=== PATIENT | male | born 1990 | race Caucasian/White ===

== ENCOUNTER 2016-05-26 06:03 | Emergency (ER) | payer OTHER ==
[2016-05-26] MEDS ORDERED: ONDANSETRON 4 MG/2 ML VIAL IVP STA ×2 (06:12→06:13)
[2016-05-26] MEDS ORDERED: FAMOTIDINE 20 MG/2 ML VIAL IV STA ×2 (06:12→06:13)
[2016-05-26] MEDS ORDERED: SODIUM CHLORIDE 0.9% 1,000 ML IV STA ×2 (06:13→07:14)
--- NOTE | 2016-05-26 06:15 | ED ---
General Adult HPI - General Source: patient (And girlfriend), RN notes reviewed Mode of arrival: ambulatory Limitations: no limitations <Phani Maravilla - Last Filed: 05/26/16 06:14> <Gadiel Salazar - Last Filed: 05/26/16 08:25> - General Chief complaint: Abdominal Pain Stated complaint: NAUSEA,VOMITING,ABD PAIN Time Seen by Provider: 05/26/16 06:09 - History of Present Illness Initial comments: Patient is a pleasant 25-year-old male presenting to emergency Department with nausea vomiting abdominal discomfort. Onset was just the past couple hours. Symptoms woke him from sleep. No known bad food exposure. No fevers. No history of chronic problems. Patient has dry heaved several times with one episode of emesis. Patient has discomfort mostly in the epigastric region. Majority of history is taken from girlfriend. (Phani Maravilla) - Related Data Previous Rx's Medication Instructions Recorded Dicyclomine [Bentyl] 10 mg PO TID #15 capsule 05/26/16 Allergies Allergy/AdvReac Type Severity Reaction Status Date / Time No Known Allergies Allergy Verified 05/26/16 07:37 Review of Systems ROS Other: All systems not noted in ROS Statement are negative. Constitutional: Denies: fever Eyes: Denies: eye pain ENT: Denies: ear pain Respiratory: Denies: cough Cardiovascular: Denies: chest pain Endocrine: Denies: fatigue Gastrointestinal: Reports: abdominal pain, nausea, vomiting. Denies: diarrhea Genitourinary: Denies: dysuria Musculoskeletal: Denies: back pain Skin: Denies: rash Neurological: Denies: weakness <Phani Maravilla - Last Filed: 05/26/16 06:14> ROS Other: All systems not noted in ROS Statement are negative. <Gadiel Salazar - Last Filed: 05/26/16 08:25> ROS Statement: Those systems with pertinent positive or pertinent negative responses have been documented in the HPI. Past Medical History Past Medical History: No Reported History History of Any Multi-Drug Resistant Organisms: None Reported Past Surgical History: No Surgical Hx Reported Past Psychological History: No Psychological Hx Reported Smoking Status: Current every day smoker Past Alcohol Use History: Occasional Past Drug Use History: None Reported <Phani Maravilla - Last Filed: 05/26/16 06:14> General Exam Limitations: no limitations General appearance: alert Head exam: Present: atraumatic, normocephalic Eye exam: Present: normal appearance Neck exam: Present: normal inspection Respiratory exam: Present: normal lung sounds bilaterally Cardiovascular Exam: Present: regular rate, normal rhythm Expanded Peripheral pulses: 2+: Dorsalis Pedis (R), Dorsalis Pedis (L) GI/Abdominal exam: Present: soft, tenderness (Mild diffuse tenderness), normal bowel sounds. Absent: distended, guarding, rebound, rigid, pulsatile mass Extremities exam: Present: normal inspection Neurological exam: Present: alert Psychiatric exam: Present: normal affect, normal mood Skin exam: Absent: rash <Phani Maravilla - Last Filed: 05/26/16 06:14> Medical Decision Making <Phani Maravilla - Last Filed: 05/26/16 06:14> - Lab Data Result diagrams: 05/26/16 06:25 05/26/16 06:25 - Radiology Data Radiology results: report reviewed (I did review the x-ray report is consistent with enteritis.), image reviewed <Gadiel Salazar - Last Filed: 05/26/16 08:25> - Medical Decision Making I did review the patient's labs and x-rays and did discuss the findings with patient and reevaluated on several occasions I did discuss findings also with the patient's mother with the patient's permission. Patient does demonstrate evidence of enteritis secondary likely to a viral infection patient will be discharged he is feeling much improved at this time. We discharged and instructed to increase oral fluids appropriate medication no for work today. ( Gadiel Salazar) - Lab Data Lab Results 05/26/16 05/26/16 05/26/16 Range/Units 06:25 06:25 06:25 WBC 9.0 (3.8-10.6) k/uL RBC 5.65 (4.30-5.90) m/uL Hgb 16.9 (13.0-17.5) gm/dL Hct 49.7 (39.0-53.0) % MCV 88.0 (80.0-100.0) fL MCH 30.0 (25.0-35.0) pg MCHC 34.1 (31.0-37.0) g/dL RDW 13.1 (11.5-15.5) % Plt Count 156 (150-450) k/uL Neutrophils % 76 % Lymphocytes % 15 % Monocytes % 5 % Eosinophils % 2 % Basophils % 1 % Neutrophils # 6.9 (1.3-7.7) k/uL Lymphocytes # 1.3 (1.0-4.8) k/uL Monocytes # 0.4 (0-1.0) k/uL Eosinophils # 0.2 (0-0.7) k/uL Basophils # 0.1 (0-0.2) k/uL PT 10.5 (9.0-12.0) sec INR 1.0 (<1.1) APTT 21.6 L (22.0-30.0) sec Sodium 146 H (137-145) mmol/L Potassium 4.2 (3.5-5.1) mmol/L Chloride 101 (98-107) mmol/L Carbon Dioxide 28 (22-30) mmol/L Anion Gap 17 mmol/L BUN 23 H (9-20) mg/dL Creatinine 1.29 H (0.66-1.25) mg/dL Est GFR (MDRD) Af Amer >60 (>60 ml/min/1.73 sqM) Est GFR (MDRD) Non-Af >60 (>60 ml/min/1.73 sqM) Glucose 101 H (74-99) mg/dL Calcium 10.4 H (8.4-10.2) mg/dL Total Bilirubin 0.6 (0.2-1.3) mg/dL AST 52 (17-59) U/L ALT 52 (21-72) U/L Alkaline Phosphatase 67 (38-126) U/L Total Protein 8.4 H (6.3-8.2) g/dL Albumin 5.4 H (3.5-5.0) g/dL Amylase 120 H (30-110) U/L Lipase 513 H (23-300) U/L Urine Color Urine Appearance (Clear) Urine pH (5.0-8.0) Ur Specific [place] (1.001-1.035) Urine Protein (Negative) Urine Glucose (UA) (Negative) Urine Ketones (Negative) Urine Blood (Negative) Urine Nitrite (Negative) Urine Bilirubin (Negative) Urine Urobilinogen (<2.0) mg/dL Ur Leukocyte Esterase (Negative) Urine RBC (0-5) /hpf Urine WBC (0-5) /hpf Urine Mucus (None) /hpf 05/26/16 Range/Units 07:42 WBC (3.8-10.6) k/uL RBC (4.30-5.90) m/uL Hgb (13.0-17.5) gm/dL Hct (39.0-53.0) % MCV (80.0-100.0) fL MCH (25.0-35.0) pg MCHC (31.0-37.0) g/dL RDW (11.5-15.5) % Plt Count (150-450) k/uL Neutrophils % % Lymphocytes % % Monocytes % % Eosinophils % % Basophils % % Neutrophils # (1.3-7.7) k/uL Lymphocytes # (1.0-4.8) k/uL Monocytes # (0-1.0) k/uL Eosinophils # (0-0.7) k/uL Basophils # (0-0.2) k/uL PT (9.0-12.0) sec INR (<1.1) APTT (22.0-30.0) sec Sodium (137-145) mmol/L Potassium (3.5-5.1) mmol/L Chloride (98-107) mmol/L Carbon Dioxide (22-30) mmol/L Anion Gap mmol/L BUN (9-20) mg/dL Creatinine (0.66-1.25) mg/dL Est GFR (MDRD) Af Amer (>60 ml/min/1.73 sqM) Est GFR (MDRD) Non-Af (>60 ml/min/1.73 sqM) Glucose (74-99) mg/dL Calcium (8.4-10.2) mg/dL Total Bilirubin (0.2-1.3) mg/dL AST (17-59) U/L ALT (21-72) U/L Alkaline Phosphatase (38-126) U/L Total Protein (6.3-8.2) g/dL Albumin (3.5-5.0) g/dL Amylase (30-110) U/L Lipase (23-300) U/L Urine Color Yellow Urine Appearance Clear (Clear) Urine pH 6.5 (5.0-8.0) Ur Specific [place] 1.026 (1.001-1.035) Urine Protein 1+ H (Negative) Urine Glucose (UA) Negative (Negative) Urine Ketones Trace H (Negative) Urine Blood Negative (Negative) Urine Nitrite Negative (Negative) Urine Bilirubin Negative (Negative) Urine Urobilinogen <2.0 (<2.0) mg/dL Ur Leukocyte Esterase Small H (Negative) Urine RBC 1 (0-5) /hpf Urine WBC 5 (0-5) /hpf Urine Mucus Few H (None) /hpf Disposition <Phani Maravilla - Last Filed: 05/26/16 06:14> <Gadiel Salazar - Last Filed: 05/26/16 08:25> Clinical Impression: Gastroenteritis, Dehydration, Abdominal pain Disposition: HOME SELF-CARE Condition: Good Instructions: Abdominal Pain (ED), Gastroenteritis (ED), Dehydration (ED) Prescriptions: Dicyclomine [Bentyl] 10 mg PO TID #15 capsule
[2016-05-26 06:39] LABS: Basophils # (A) 0.1 k/uL (0-0.2); Basophils % (A) 1 %; CH 30.3; CHCM 34.6; Eosinophils # (A) 0.2 k/uL (0-0.7); Eosinophils % (A) 2 %; HCT 49.7 % (39.0-53.0); HDW 2.34; HGB 16.9 gm/dL (13.0-17.5); Luc # (Auto) 0.15; Luc % (Auto) 2; Lymphocytes # (A) 1.3 k/uL (1.0-4.8); Lymphocytes % (A) 15 %; MCHC 34.1 g/dL (31.0-37.0); Mean Platelet Volume 8.3; Monocytes # (A) 0.4 k/uL (0-1.0); Monocytes % (A) 5 %; Neutrophils # (A) 6.9 k/uL (1.3-7.7); Neutrophils % (A) 76 %; RBC 5.65 m/uL (4.30-5.90); RDW 13.1 % (11.5-15.5); WBC (Perox) 8.65
[2016-05-26 06:50] LABS: ALT 52 U/L (21-72); AST 52 U/L (17-59); Alkaline Phosphatase 67 U/L (38-126); Amylase 120 U/L (30-110); Anion Gap 17 mmol/L; Blood Urea Nitrogen 23 mg/dL (9-20); Calcium 10.4 mg/dL (8.4-10.2); Carbon Dioxide 28 mmol/L (22-30); Chloride 101 mmol/L (98-107); Glucose 101 mg/dL (74-99); Non-African American GFR(MDRD) >60 (>60 ml/min/1.73 sqM); Potassium 4.2 mmol/L (3.5-5.1); Sodium 146 mmol/L (137-145); Total Bilirubin 0.6 mg/dL (0.2-1.3); Total Protein 8.4 g/dL (6.3-8.2)
[2016-05-26 06:51] LABS: Prothrombin Time 10.5 sec (9.0-12.0)
--- NOTE | 2016-05-26 07:12 | XR ---
EXAMINATION TYPE: XR KUB DATE OF EXAM: 05/26/2016 6:46 AM CLINICAL DATA: 25-year-old male with abdominal pain, epigastric pain with nausea and vomiting, PHH COMPARISON: None FINDINGS: Lung bases are clear. No evidence for free intraperitoneal air. No dilated small bowel. Air is seen throughout the colon with multiple air-fluid levels. No abnormal bowel dilatation. There is mild stool in the distal colon. No suspicious calcifications seen. IMPRESSION: 1. Air-fluid levels throughout the colon suggesting liquid stool. Correlate for enteritis. 2. No evidence of bowel obstruction or free intraperitoneal air.
[2016-05-26] MEDS ORDERED: KETOROLAC 30 MG/ML 1 ML VIAL IVP STA (07:13)
[2016-05-26 07:16] LABS: Partial Thromboplastin Time 21.6 sec (22.0-30.0)
[2016-05-26 08:15] LABS: Appearance,Urine Clear (Clear); Bilirubin,Urine Negative (Negative); Glucose,Urine (UA) Negative (Negative); Ketones,Urine Trace (Negative); Leukocyte Esterase,Urine Small (Negative); Mucus,Urine Few /hpf; Nitrite,Urine Negative (Negative); PH, Urine 6.5 (5.0-8.0); Particle Count 7793; Protein,Urine 1+ (Negative); RBC,Urine 1 /hpf (0-5); Specific Gravity,Urine 1.026 (1.001-1.035); UA Billing (MACRO vs. MICRO) MICRO; Urobilinogen,Urine <2.0 mg/dL (<2.0); WBC,Urine 5 /hpf (0-5)
[2016-05-26 08:38] VITALS: BP 104/52; PULSE 69; RESP 17; TEMP 97.5
== END 2016-05-26 08:37 | disposition home or self-care (01) ==
LOC: EC 06:03
DX: K52.9 Noninfective gastroenteritis and colitis, unspecified (principal); E86.0 Dehydration; R11.2 Nausea with vomiting, unspecified; F17.200 Nicotine dependence, unspecified, uncomplicated
CPT/HCPCS: 99284; 96374; 96375 ×2; 96361 ×2; 36415; 80053; 82150; 83690; 85025; 85610; 85730; 81001; 74000; J2405; J1885

== ENCOUNTER 2017-07-31 20:23 | Emergency (ER) | payer BC, OTHER ==
[2017-07-31 20:39] VITALS: TEMP 97.4
[2017-07-31] MEDS ORDERED: SODIUM CHLORIDE 0.9% 1,000 ML IV STA (21:23)
[2017-07-31] MEDS ORDERED: KETOROLAC 30 MG/ML 1 ML VIAL IVP STA (21:23)
--- NOTE | 2017-07-31 21:28 | ED ---
Abdominal Pain HPI - General Chief Complaint: Abdominal Pain Stated Complaint: Abdominal Pain Time Seen by Provider: 07/31/17 21:11 Source: patient, RN notes reviewed Mode of arrival: ambulatory Limitations: no limitations - History of Present Illness Initial Comments: This is a 27-year-old male who presents to the emergency department with chief complaint of abdominal pain. Patient is accompanied by his father who contributes to history. Patient states that for the past 6-8 months he has been experiencing intermittent abdominal pain. He states that he has been seen here 3 times and at [facility] 2 times. His last visit to [facility] was 2 days ago where he did have a computed tomography scan performed. Patient reports right upper quadrant abdominal pain that feels like he is being punched in the gut. He states the pain is made worse after eating. He states that over the past 6 months he has lost 15 pounds. He states he is unable to eat. He admits to associated nausea and vomiting. Denies fevers or chills, chest pain shortness breath, constipation or diarrhea. He denies any flank pain. Denies dysuria or hematuria. Father is at bedside and states that he is very concerned. He states that patient is normally very active and well and not something is going on. He states the patient does have a follow-up with gastroenterology in 3 weeks but that patient cannot wait that long. - Related Data Previous Rx's Medication Instructions Recorded Dicyclomine [Bentyl] 10 mg PO TID #15 capsule 05/26/16 Allergies Allergy/AdvReac Type Severity Reaction Status Date / Time No Known Allergies Allergy Verified 07/31/17 20:39 Review of Systems ROS Statement: Those systems with pertinent positive or pertinent negative responses have been documented in the HPI. ROS Other: All systems not noted in ROS Statement are negative. Past Medical History Past Medical History: No Reported History History of Any Multi-Drug Resistant Organisms: None Reported Past Surgical History: No Surgical Hx Reported Past Psychological History: No Psychological Hx Reported Smoking Status: Current every day smoker Past Alcohol Use History: Occasional Past Drug Use History: None Reported General Exam - General Exam Comments Initial Comments: General: Awake and alert, well-developed; in no apparent distress. HEENT: Head atraumatic, normocephalic. Pupils are equal, round and reactive to light. Extraocular movements intact. Oropharynx moist without erythema or exudate. Neck: Supple. Normal ROM. Cardiovascular: Regular rate and rhythm. No murmurs, rubs or gallops. Chest symmetrical. Respiratory: Lungs clear to auscultation bilaterally. No wheezes, rales or rhonchi. Normal respiratory effort with no use of accessory muscles. Abdomen: Soft, non-distended. Mild tenderness on palpation of right upper quadrant. No rigidity, rebound or guarding. Normal bowel sounds in all 4 quadrants. Musculoskeletal: Normal ROM, no tenderness bilateral upper and lower extremities. Ambulating normally. Skin: Percival, warm and dry without rashes or lesions. Neurological: Alert and oriented x3. CN II-XII grossly intact. Speech is fluent and answers are appropriate. No focal neuro deficits. Psychiatric: Normal mood and affect. No overt signs of depression or anxiety noted. Limitations: no limitations Course Vital Signs 07/31/17 20:37 Temperature 97.4 F L Pulse Rate 52 L Respiratory 18 Rate Blood Pressure 103/60 O2 Sat by Pulse 98 Oximetry Medical Decision Making - Medical Decision Making This is a 27-year-old male who presents to the emergency department with chief complaint of abdominal pain. Patient has been having intermittent abdominal pain for the past 6-8 months. He has been evaluated multiple times at this ER and [facility]. He was seen at [facility] 2 days ago with the same issue. Patient states that his symptoms have not worsened but that they have not subsided. He complains of right upper quadrant abdominal pain, nausea and vomiting. CBC, CMP, coags and UA were unremarkable. I was able to obtain the report from the computed tomography scan the patient had performed 2 days ago at [facility]. This revealed a tiny amount of free fluid in the pelvis but no definitive minute other acute abnormality identified. While in the emergency department, patient's vital signs have been stable and he is in no acute distress. Patient will be given contact information for follow-up to GI. Patient is in agreement with [employer] voices understanding. He is in no acute distress at this time. All questions answered. - Lab Data Result diagrams: 07/31/17 21:02 07/31/17 21:02 Lab Results 07/31/17 07/31/17 07/31/17 Range/Units 21:02 21:02 21:02 WBC 8.6 (3.8-10.6) k/uL RBC 5.13 (4.30-5.90) m/uL Hgb 15.6 (13.0-17.5) gm/dL Hct 44.7 (39.0-53.0) % MCV 87.1 (80.0-100.0) fL MCH 30.3 (25.0-35.0) pg MCHC 34.8 (31.0-37.0) g/dL RDW 12.8 (11.5-15.5) % Plt Count 148 L (150-450) k/uL Neutrophils % 69 % Lymphocytes % 23 % Monocytes % 5 % Eosinophils % 1 % Basophils % 1 % Neutrophils # 5.9 (1.3-7.7) k/uL Lymphocytes # 1.9 (1.0-4.8) k/uL Monocytes # 0.4 (0-1.0) k/uL Eosinophils # 0.1 (0-0.7) k/uL Basophils # 0.0 (0-0.2) k/uL PT 10.5 (9.0-12.0) sec INR 1.1 (<1.2) APTT 24.6 (22.0-30.0) sec Sodium 142 (137-145) mmol/L Potassium 3.9 (3.5-5.1) mmol/L Chloride 99 (98-107) mmol/L Carbon Dioxide 29 (22-30) mmol/L Anion Gap 14 mmol/L BUN 15 (9-20) mg/dL Creatinine 1.00 (0.66-1.25) mg/dL Est GFR (CKD-EPI)AfAm >90 (>60 ml/min/1.73 sqM) Est GFR (CKD-EPI)NonAf >90 (>60 ml/min/1.73 sqM) Glucose 102 H (74-99) mg/dL Calcium 9.6 (8.4-10.2) mg/dL Total Bilirubin 0.2 (0.2-1.3) mg/dL AST 28 (17-59) U/L ALT 44 (21-72) U/L Alkaline Phosphatase 51 (38-126) U/L Total Protein 6.5 (6.3-8.2) g/dL Albumin 4.3 (3.5-5.0) g/dL Amylase 53 (30-110) U/L Lipase 19 L (23-300) U/L Urine Color Urine Appearance (Clear) Urine pH (5.0-8.0) Ur Specific [place] (1.001-1.035) Urine Protein (Negative) Urine Glucose (UA) (Negative) Urine Ketones (Negative) Urine Blood (Negative) Urine Nitrite (Negative) Urine Bilirubin (Negative) Urine Urobilinogen (<2.0) mg/dL Ur Leukocyte Esterase (Negative) Urine RBC (0-5) /hpf Ur Squamous Epith Cells (0-4) /hpf Amorphous Sediment (None) /hpf Urine Mucus (None) /hpf 07/31/17 Range/Units 21:02 WBC (3.8-10.6) k/uL RBC (4.30-5.90) m/uL Hgb (13.0-17.5) gm/dL Hct (39.0-53.0) % MCV (80.0-100.0) fL MCH (25.0-35.0) pg MCHC (31.0-37.0) g/dL RDW (11.5-15.5) % Plt Count (150-450) k/uL Neutrophils % % Lymphocytes % % Monocytes % % Eosinophils % % Basophils % % Neutrophils # (1.3-7.7) k/uL Lymphocytes # (1.0-4.8) k/uL Monocytes # (0-1.0) k/uL Eosinophils # (0-0.7) k/uL Basophils # (0-0.2) k/uL PT (9.0-12.0) sec INR (<1.2) APTT (22.0-30.0) sec Sodium (137-145) mmol/L Potassium (3.5-5.1) mmol/L Chloride (98-107) mmol/L Carbon Dioxide (22-30) mmol/L Anion Gap mmol/L BUN (9-20) mg/dL Creatinine (0.66-1.25) mg/dL Est GFR (CKD-EPI)AfAm (>60 ml/min/1.73 sqM) Est GFR (CKD-EPI)NonAf (>60 ml/min/1.73 sqM) Glucose (74-99) mg/dL Calcium (8.4-10.2) mg/dL Total Bilirubin (0.2-1.3) mg/dL AST (17-59) U/L ALT (21-72) U/L Alkaline Phosphatase (38-126) U/L Total Protein (6.3-8.2) g/dL Albumin (3.5-5.0) g/dL Amylase (30-110) U/L Lipase (23-300) U/L Urine Color Yellow Urine Appearance Cloudy (Clear) Urine pH 7.0 (5.0-8.0) Ur Specific [place] 1.019 (1.001-1.035) Urine Protein Trace H (Negative) Urine Glucose (UA) Negative (Negative) Urine Ketones Negative (Negative) Urine Blood Negative (Negative) Urine Nitrite Negative (Negative) Urine Bilirubin Negative (Negative) Urine Urobilinogen <2.0 (<2.0) mg/dL Ur Leukocyte Esterase Negative (Negative) Urine RBC 5 (0-5) /hpf Ur Squamous Epith Cells <1 (0-4) /hpf Amorphous Sediment Occasional H (None) /hpf Urine Mucus Rare H (None) /hpf Disposition Clinical Impression: Abdominal pain, Nausea and vomiting Disposition: HOME SELF-CARE Condition: Good Instructions: Abdominal Pain (ED) Additional Instructions: Please follow-up with Dr. Petty, gastroenterology within 1-2 days. Please follow up with primary care provider within 1-2 days. Return to emergency department if symptoms should worsen or any concerns arise. Is patient prescribed a controlled substance at d/c from ED?: No Referrals: Jaden Murdock MD [Primary Care Provider] - 1-2 days Frannie Petty MD [STAFF PHYSICIAN] - 1-2 days Time of Disposition: 22:23
[2017-07-31 21:58] LABS: Basophils % (A) 1 %; Eosinophils # (A) 0.1 k/uL (0-0.7); Eosinophils % (A) 1 %; HCT 44.7 % (39.0-53.0); HGB 15.6 gm/dL (13.0-17.5); Lymphocytes # (A) 1.9 k/uL (1.0-4.8); Lymphocytes % (A) 23 %; MCH 30.3 pg (25.0-35.0); MCHC 34.8 g/dL (31.0-37.0); MCV 87.1 fL (80.0-100.0); Mean Platelet Volume 8.5; Monocytes # (A) 0.4 k/uL (0-1.0); Monocytes % (A) 5 %; Neutrophils # (A) 5.9 k/uL (1.3-7.7); Neutrophils % (A) 69 %; Platelet Count 148 k/uL (150-450); RBC 5.13 m/uL (4.30-5.90); RDW 12.8 % (11.5-15.5); WBC 8.6 k/uL (3.8-10.6)
[2017-07-31 22:04] LABS: Amorphous Sediment,Urine Occasional /hpf; Appearance,Urine Cloudy (Clear); Bilirubin,Urine Negative (Negative); Blood,Urine Negative (Negative); Color,Urine Yellow; Glucose,Urine (UA) Negative (Negative); Ketones,Urine Negative (Negative); Leukocyte Esterase,Urine Negative (Negative); Mucus,Urine Rare /hpf; Nitrite,Urine Negative (Negative); Protein,Urine Trace (Negative); RBC,Urine 5 /hpf (0-5); Specific Gravity,Urine 1.019 (1.001-1.035); Squamous Epithelial Cell,Urine <1 /hpf (0-4); Urobilinogen,Urine <2.0 mg/dL (<2.0)
[2017-07-31 22:06] LABS: INR 1.1 (<1.2); Partial Thromboplastin Time 24.6 sec (22.0-30.0); Prothrombin Time 10.5 sec (9.0-12.0)
[2017-07-31 22:09] LABS: ALT 44 U/L (21-72); AST 28 U/L (17-59); Albumin 4.3 g/dL (3.5-5.0); Alkaline Phosphatase 51 U/L (38-126); Amylase 53 U/L (30-110); Anion Gap 14 mmol/L; Blood Urea Nitrogen 15 mg/dL (9-20); Calcium 9.6 mg/dL (8.4-10.2); Carbon Dioxide 29 mmol/L (22-30); Chloride 99 mmol/L (98-107); Glucose 102 mg/dL (74-99); Lipase 19 U/L (23-300); Potassium 3.9 mmol/L (3.5-5.1); Sodium 142 mmol/L (137-145); Total Bilirubin 0.2 mg/dL (0.2-1.3); Total Protein 6.5 g/dL (6.3-8.2)
[2017-07-31 22:51] VITALS: BP 115/69; PULSE 44; RESP 16
== END 2017-07-31 22:50 | disposition home or self-care (01) ==
LOC: EC 20:23
DX: R10.11 Right upper quadrant pain (principal); R11.2 Nausea with vomiting, unspecified; F17.200 Nicotine dependence, unspecified, uncomplicated
CPT/HCPCS: 99284; 96374; 96361; 36415; 80053; 82150; 83690; 85025; 85610; 85730; 81001; J1885

== ENCOUNTER → 2017-08-10 | Outpatient (CLI) | payer BC ==
--- NOTE | 2017-08-10 11:37 | NM ---
EXAMINATION TYPE: NM hepatobiliary w EF DATE OF EXAM: 08/10/2017 COMPARISON: NONE INDICATION: Epigastric pain TECHNIQUE: After the intravenous administration of 5.01 mCi Tc 99m Mebrofenin hepatobiliary scintigra phy is performed. Images were obtained immediately post injection. FINDINGS: There is prompt uptake and excretion of radiotracer by the liver. Extrahepatic ducts are identified at 8 minutes. The gallbladder is visualized within 11 minutes. Small bowel activity is noted within 60 minutes. At one hour 8 ounces of oral ensure plus is given to mimic CCK and gallbladder ejection fraction is c alculated at 68 %, which is in the normal range. (Normal >35% and <80%.). IMPRESSION: 1. Normal hepatobiliary scan
== END | disposition home or self-care (01) ==
LOC: RADNMMAIN 06:58
PROVIDERS: ATTEND Internal Medicine Gastroenterology
DX: R10.13 Epigastric pain (principal)
CPT/HCPCS: 78226; A9537

== ENCOUNTER 2017-08-22 10:40 | Day surgery (SDC) | payer BC ==
[2017-08-19 09:05] VITALS: BMI 25.1
[~2017-08-22 10:40] MED LIST: LACTATED RINGERS 1,000 ML IV SCH
[2017-08-22 10:55] VITALS: TEMP 97.8
[2017-08-22] MEDS ORDERED: LIDOCAINE 1% 20 ML VIAL (10MG/ML) FOR IV START INTRADERMA ONE (10:59)
[2017-08-22] MEDS ORDERED: PROPOFOL 10 MG/ML 20 ML VIAL IV ONE (12:23)
[2017-08-22 12:51] VITALS: PULSE 51
--- NOTE | 2017-08-22 12:52 | P.PCN ---
Date of Procedure: 08/22/17 Procedure(s) Performed: Procedure: Esophagogastroduodenoscopy and biopsy. Preoperative diagnosis: Recurrent episodes of epigastric pain. Postoperative diagnosis: 1. Small sliding hiatal hernia with LA grade B distal esophagitis. 2. Mild antral gastritis. 3. Biopsies obtained from the duodenum , antrum and esophagus. Preparation sedation: Was provided by anesthesia. Brief clinical history: The patient is a 27-year-old male who was evaluated in the office last month for recurrent episodes of epigastric pain of around 1 year duration. The typical episodes last 1-2 days and he has been in the emergency room with these episodes and was told that he had a virus illness and discharged. His last episode was early in July. The patient has long-standing history of acid reflux and has used Prilosec intermittently over the years and recently he has been on Carafate. Gallbladder workup was negative. This evaluation is to assess for peptic ulcer disease complicated reflux disease or other pathology. Procedure: With the patient on his left lateral decubitus position and after informed consent and adequate sedation, I passed the Olympus-GIF 160 video upper endoscope through the cricopharyngeus down the esophagus. GE junction was around 41 cm from the incisors and there was a small sliding hiatal hernia measuring between 1 and 2 cm. The esophagus showed evidence of LA grade B distal esophagitis with multiple small punctate erosions but there were no ulcers or strictures or Aguilar's esophagus. The endoscope was then passed into the stomach which was insufflated with air and inspected in detail including the retroflex view in the cardia. There was some mottling and erythema in the antrum but no ulcers or erosions. Pyloric channel, duodenal bulb, post bulbar area and descending duodenum appeared within normal limits. Because of his symptoms, I obtained biopsies from the duodenum, antrum and esophagus then the endoscope was withdrawn. The patient tolerated the procedure well. Plan: The patient was reassured. Will await biopsy results. He will follow up in the office as planned and would keep you updated on his progress.
[2017-08-22 13:25] VITALS: BP 117/74; RESP 18
== END 2017-08-22 13:46 | disposition home or self-care (01) ==
LOC: ORWHC2ENDO 10:40
DX: K29.50 Unspecified chronic gastritis without bleeding (principal); K21.0 Gastro-esophageal reflux disease with esophagitis; K44.9 Diaphragmatic hernia without obstruction or gangrene; N18.2 Chronic kidney disease, stage 2 (mild); F98.8 Other specified behavioral and emotional disorders with onset usually occurring in childhood and adolescence; F17.210 Nicotine dependence, cigarettes, uncomplicated; Z79.899 Other long term (current) drug therapy
CPT/HCPCS: 43239; 88305; J2704